=== PATIENT | female | born 1945 | race Caucasian/White ===

== ENCOUNTER 2019-05-01 07:30 | Inpatient (IN) | payer MEDICARE, MEDICAID ==
[~2019-05-01] VITALS: Ht 157.5 cm; Wt 76.2 kg
[~2019-05-01 07:30] MED LIST: ALEN70TA68 PO; AMLO2.5T45 PO; ASPI-1393 PO; ATOR10TA69 PO; CALCIUM PO; FENO200C PO; GABA-531 PO; LISI10TA5 PO; METF-414 PO; MONT10TA21 PO; PRAV10TA35 PO; levaquin PO
[2019-05-01] MEDS ORDERED: ALBUTEROL (0.083%) 2.5MG/3ML NEB HHN STA (08:06)
[2019-05-01] MEDS ORDERED: IPRATROPIUM BROMIDE (0.02%) 0.5MG/2.5ML NEB HHN STA (08:06)
[2019-05-01 08:13] LABS: BASOPHILS % 0.9 % (0.0-2.0); EOSINOPHILS % 1.7 % (0.0-5.0); HEMATOCRIT. 42.4 % (36.0-48.0); HEMOGLOBIN. 14.3 g/dL (12.0-16.0); LYMPHOCYTES % 25.5 % (20.0-50.0); MEAN CORPUSCULAR HEMOGLOBIN 30.1 pg (28.0-32.0); MEAN CORPUSCULAR VOLUME 88.9 fL (81.0-99.0); MEAN PLATELET VOLUME 7.4 fl (7.4-10.4); MONOCYTES % 5.5 % (2.0-8.0); NEUTROPHILS % 66.4 % (40.0-76.0); PLATELET 206 x1000/uL (130-400); RED BLOOD CELL COUNT 4.77 mill/uL (4.2-5.4); RED CELL DISTRIBUTION WIDTH 13.9 % (11.6-14.6)
[2019-05-01 08:20] LABS: CHLORIDE 107 mEq/L (98-107)
[2019-05-01 08:21] LABS: INR 1.1; PROTHROMBIN TIME 11.5 sec (9.6-11.0)
[2019-05-01 08:54] LABS: CLARITY URINE CLEAR (CLEAR); COLOR URINE YELLOW (YELLOW); KETONES URINE NEGATIVE (NEGATIVE); LEUKOCYTE ESTERASE URINE NEGATIVE (NEGATIVE); NITRITE URINE NEGATIVE (NEGATIVE); OCCULT BLOOD URINE TRACE (NEGATIVE); PROTEIN URINE 1+ (NEGATIVE); SPECIFIC GRAVITY URINE 1.014 (1.005-1.030); UROBILINOGEN URINE 0.2 E.U./dL (0.2-1.0)
[2019-05-01] MEDS ORDERED: POTASSIUM CHLORIDE 20MEQ TABLET SR PO ONE (10:00)
[2019-05-01] MEDS ORDERED: FUROSEMIDE 20MG/2ML VIAL IVP ONE (10:00)
[2019-05-01] MEDS ORDERED: ONDANSETRON HCL 4MG/2ML INJ IV PRN (11:00)
[2019-05-01] MEDS ORDERED: CLONIDINE 0.1MG TABLET PO PRN (11:00)
[2019-05-01] MEDS ORDERED: ACETAMINOPHEN 325MG TABLET PO PRN (11:00)
[2019-05-01 11:16] VITALS: BP 142/63
[2019-05-01 12:38] VITALS: BP 142/63
[2019-05-01] MEDS ORDERED: POTASSIUM CHLORIDE 20MEQ TABLET SR PO SCH ×2 (13:00→17:00)
[2019-05-01] MEDS: PANTOPRAZOLE 40MG DR TABLET PO SCH (15:19)
[2019-05-01 16:10] VITALS: BP 130/65
[2019-05-01] MEDS ORDERED: DEXTROSE 50% WATER 50ML SYRINGE IV PRN (16:15)
[2019-05-01] MEDS: INSULIN LISPRO 100 UNITS/ML SUBCUT SCH ×2 (17:50→20:26)
[2019-05-01] MEDS: BLOOD SUGAR DIAGNOSTIC STRIP TEST SCH ×2 (17:52→20:26)
[2019-05-01] MEDS: FUROSEMIDE 40MG/4ML VIAL IVP SCH (18:14)
[2019-05-01] MEDS ORDERED: NAPR-677 MT (18:53)
[2019-05-01] MEDS ORDERED: CARB-32 PO (18:53)
[2019-05-01] MEDS ORDERED: NAPR-681 MT (18:53)
[2019-05-01] MEDS ORDERED: PROM473S4 MT (18:54)
[2019-05-01] MEDS ORDERED: LOSA50TA41 MT (19:00)
[2019-05-01 20:00] VITALS: BP 139/63
[2019-05-01] MEDS: CARVEDILOL 6.25 MG TABLET PO SCH (20:40)
[2019-05-01 21:16] LABS: T4 FREE 1.02 ng/dL (0.76-1.46)
[2019-05-02] VITALS (7 sets, daily range): BP systolic 98–130; BP diastolic 51–83
[2019-05-02 06:20] LABS: BASOPHILS % 0.7 % (0.0-2.0); HEMATOCRIT. 41.9 % (36.0-48.0); HEMOGLOBIN. 14.2 g/dL (12.0-16.0); LYMPHOCYTES % 23.6 % (20.0-50.0); MEAN CORPUSCULAR HEMOGLOBIN 30.1 pg (28.0-32.0); MEAN CORPUSCULAR VOLUME 88.5 fL (81.0-99.0); MEAN PLATELET VOLUME 8.1 fl (7.4-10.4); MONOCYTES % 8.1 % (2.0-8.0); NEUTROPHILS % 65.6 % (40.0-76.0); PLATELET 219 x1000/uL (130-400); RED BLOOD CELL COUNT 4.74 mill/uL (4.2-5.4); RED CELL DISTRIBUTION WIDTH 14.1 % (11.6-14.6)
[2019-05-02] MEDS: PANTOPRAZOLE 40MG DR TABLET PO SCH (06:32)
[2019-05-02] MEDS: BLOOD SUGAR DIAGNOSTIC STRIP TEST SCH ×4 (06:32→20:44)
[2019-05-02] MEDS: FUROSEMIDE 40MG/4ML VIAL IVP SCH ×2 (06:32→17:13)
[2019-05-02 06:33] LABS: CHLORIDE 108 mEq/L (98-107)
[2019-05-02] MEDS: INSULIN LISPRO 100 UNITS/ML SUBCUT SCH ×4 (07:50→20:44)
[2019-05-02] MEDS ORDERED: POTASSIUM CHLORIDE 20MEQ TABLET SR PO SCH (09:00)
[2019-05-02] MEDS: CARVEDILOL 6.25 MG TABLET PO SCH ×2 (09:00→20:44)
[2019-05-02] MEDS ORDERED: MAGNESIUM 2 G PREMIX 50 ML IV NR (10:00)
[2019-05-02] MEDS: LISINOPRIL 2.5MG TABLET PO SCH (13:00)
[2019-05-02] MEDS: CEFTRIAXONE 1 G PREMIX 50 ML IV SCH (21:02)
[2019-05-03] VITALS: BP 107/49
[2019-05-03 04:00] VITALS: BP 96/65
[2019-05-03] MEDS: FUROSEMIDE 40MG/4ML VIAL IVP SCH ×2 (06:23→17:56)
[2019-05-03] MEDS: PANTOPRAZOLE 40MG DR TABLET PO SCH (06:24)
[2019-05-03] MEDS: BLOOD SUGAR DIAGNOSTIC STRIP TEST SCH ×4 (06:24→21:21)
[2019-05-03 06:27] LABS: BASOPHILS % 0.9 % (0.0-2.0); EOSINOPHILS % 3.5 % (0.0-5.0); HEMATOCRIT. 41.6 % (36.0-48.0); HEMOGLOBIN. 13.9 g/dL (12.0-16.0); LYMPHOCYTES % 28.5 % (20.0-50.0); MEAN CORPUSCULAR HEMOGLOBIN 29.7 pg (28.0-32.0); MEAN CORPUSCULAR VOLUME 89.2 fL (81.0-99.0); MONOCYTES % 8.6 % (2.0-8.0); NEUTROPHILS % 58.5 % (40.0-76.0); PLATELET 217 x1000/uL (130-400); RED BLOOD CELL COUNT 4.67 mill/uL (4.2-5.4); RED CELL DISTRIBUTION WIDTH 13.6 % (11.6-14.6)
[2019-05-03 07:02] LABS: CHLORIDE 102 mEq/L (98-107)
[2019-05-03] MEDS: INSULIN LISPRO 100 UNITS/ML SUBCUT SCH ×4 (07:47→21:00)
[2019-05-03 08:00] VITALS: BP_SYST 106; BP_SYST 114; BP_DIAS 55; BP_DIAS 64
[2019-05-03] MEDS: LISINOPRIL 2.5MG TABLET PO SCH (09:29)
[2019-05-03] MEDS: CARVEDILOL 6.25 MG TABLET PO SCH ×2 (09:30→21:00)
[2019-05-03 12:00] VITALS: BP 108/53
[2019-05-03 13:31] LABS: BG BASE EXCESS 2.7 mmol/L (-2.0-2.0); BG CARBOXYHEMOGLOBIN 0.7 % (0.5-1.5); BG DEOXYHEMOGLOBIN 10.5 % (0.0-5.0); BG FRACTION INSPIRED OXYGEN 21; BG HCO3 ACT 26.7 mmol/L (22.0-26.0); BG METHEMOGLOBIN 0.2 % (0.0-1.5); BG OXYGEN SATURATION 89.4 % (92.0-98.5); BG OXYHEMOGLOBIN 88.6 % (94.0-97.0); BG PCO2 39.1 mmHg (35.0-45.0); BG PH 7.452 (7.350-7.450); BG PO2 56.7 mmHg (75.0-100.0); BG SAMPLE SITE RIGHT BRACHIAL; BG TOTAL HEMOGLOBIN 14.5 g/dL (12.0-18.0); BG VENT MODE ROOM AIR
[2019-05-03 16:00] VITALS: BP 106/49
[2019-05-03 20:00] VITALS: BP 98/45
[2019-05-03] MEDS: CEFTRIAXONE 1 G PREMIX 50 ML IV SCH (21:35)
[2019-05-04] VITALS: BP 103/60
[2019-05-04 04:00] VITALS: BP 111/58
[2019-05-04 06:58] LABS: CHLORIDE 102 mEq/L (98-107)
[2019-05-04 07:04] LABS: BASOPHILS % 0.6 % (0.0-2.0); EOSINOPHILS % 3.4 % (0.0-5.0); HEMATOCRIT. 40.5 % (36.0-48.0); HEMOGLOBIN. 13.9 g/dL (12.0-16.0); LYMPHOCYTES % 31.7 % (20.0-50.0); MEAN CORPUSCULAR HEMOGLOBIN 30.5 pg (28.0-32.0); MEAN CORPUSCULAR VOLUME 88.9 fL (81.0-99.0); MEAN PLATELET VOLUME 8.2 fl (7.4-10.4); MONOCYTES % 8.8 % (2.0-8.0); NEUTROPHILS % 55.5 % (40.0-76.0); PLATELET 211 x1000/uL (130-400); RED BLOOD CELL COUNT 4.55 mill/uL (4.2-5.4); RED CELL DISTRIBUTION WIDTH 13.7 % (11.6-14.6)
[2019-05-04] MEDS: BLOOD SUGAR DIAGNOSTIC STRIP TEST SCH ×2 (07:39→11:31)
[2019-05-04] MEDS: INSULIN LISPRO 100 UNITS/ML SUBCUT SCH ×2 (07:39→11:31)
[2019-05-04 08:00] VITALS: BP 111/55
[2019-05-04] MEDS: PANTOPRAZOLE 40MG DR TABLET PO SCH (08:11)
[2019-05-04] MEDS: FUROSEMIDE 40MG/4ML VIAL IVP SCH (08:11)
[2019-05-04] MEDS: LISINOPRIL 2.5MG TABLET PO SCH (09:06)
[2019-05-04] MEDS: CARVEDILOL 6.25 MG TABLET PO SCH (09:06)
[2019-05-04 12:00] VITALS: BP 121/54
[2019-05-04] MEDS ORDERED: FURO-151 MT (12:01)
[2019-05-04] MEDS ORDERED: LISI2.5T47 PO (12:01)
[2019-05-04] MEDS ORDERED: COR6 PO (12:01)
[2019-05-04 15:05] VITALS: BP 101/54
== END 2019-05-04 17:08 | disposition home health service (06) | DRG 190 ==
LOC: ER 07:40 → 6WST 09:54 → EDBEDREQ 09:58 → ENRESERV 10:19
PROVIDERS: ADMIT Internal Medicine; ATTEND Internal Medicine
DX: J44.1 Chronic obstructive pulmonary disease with (acute) exacerbation (principal); I50.41 Acute combined systolic (congestive) and diastolic (congestive) heart failure; E87.2 Acidosis; I31.3 Pericardial effusion (noninflammatory); I42.9 Cardiomyopathy, unspecified; I11.0 Hypertensive heart disease with heart failure; E11.9 Type 2 diabetes mellitus without complications; E66.9 Obesity, unspecified; E78.00 Pure hypercholesterolemia, unspecified; I08.1 Rheumatic disorders of both mitral and tricuspid valves; E78.5 Hyperlipidemia, unspecified; E87.6 Hypokalemia; I27.20 Pulmonary hypertension, unspecified; Z87.891 Personal history of nicotine dependence; Z90.89 Acquired absence of other organs; Z98.49 Cataract extraction status, unspecified eye; Z79.899 Other long term (current) drug therapy; Z79.84 Long term (current) use of oral hypoglycemic drugs; Z79.82 Long term (current) use of aspirin; Z68.30 Body mass index [BMI] 30.0-30.9, adult
CPT/HCPCS: 36415; 36600; 71045; 80048; 80061; 81003; 82375; 82550; 82805; 82962; 83036; 83605; 83735; 83880; 84145; 84439; 84443; 84484; 93005; 93306; 93970; 94618; 94640; 96374; 97162; 99285; J0696; J1815; J1940; J3475; J7040; J7611

== ENCOUNTER 2019-10-15 19:10 | Emergency (ER) | payer MEDICARE, MEDICAID ==
[~2019-10-15] VITALS: Ht 165.1 cm; Wt 77.0 kg
[~2019-10-15 19:10] MED LIST changes: -AMLO2.5T45 PO; -ASPI-1393 PO; +ASPI-1497 PO; -ATOR10TA69 PO; -CALCIUM PO; +CARB-32 PO; +COR6 PO; -FENO200C PO; +FURO-151 MT; -LISI10TA5 PO; +LISI2.5T47 PO; -METF-414 PO; -MONT10TA21 PO; +NAPR-677 MT; +NAPR-681 MT; +PROM473S4 MT; -levaquin PO
[2019-10-15 20:27] LABS: BASOPHILS % 1.1 % (0.0-2.0); EOSINOPHILS % 2.2 % (0.0-5.0); HEMOGLOBIN. 13.1 g/dL (12.0-16.0); LYMPHOCYTES % 25.9 % (20.0-50.0); MEAN CORPUSCULAR HEMOGLOBIN 30.8 pg (28.0-32.0); MEAN CORPUSCULAR VOLUME 89.5 fL (81.0-99.0); MONOCYTES % 6.9 % (2.0-8.0); NEUTROPHILS % 63.9 % (40.0-76.0); PLATELET 196 x1000/uL (130-400); RED BLOOD CELL COUNT 4.25 mill/uL (4.2-5.4); RED CELL DISTRIBUTION WIDTH 12.7 % (11.6-14.6)
[2019-10-15 20:31] LABS: CHLORIDE 103 mEq/L (98-107)
[2019-10-15 20:35] LABS: ETHANOL BLOOD < 10 mg/dL
[2019-10-15 21:31] VITALS: BP 140/71
== END 2019-10-15 21:34 | disposition home or self-care (01) ==
LOC: ER 19:10
DX: F12.980 Cannabis use, unspecified with anxiety disorder (principal); I10 Essential (primary) hypertension; E11.9 Type 2 diabetes mellitus without complications; E78.00 Pure hypercholesterolemia, unspecified; Z79.899 Other long term (current) drug therapy; Z79.82 Long term (current) use of aspirin
CPT/HCPCS: 36415; 80053; 80320; 85025; 93005; 99284; G0480

== ENCOUNTER 2020-01-05 17:04 | Emergency (ER) | payer MEDICARE, MEDICAID ==
[~2020-01-05] VITALS: Ht 157.5 cm; Wt 74.0 kg
[2020-01-05] MEDS ORDERED: ACETAMINOPHEN WITH CODEINE 300/30MG TABLET PO ONE (19:15)
[2020-01-05 20:15] VITALS: BP 138/64
== END 2020-01-05 20:16 | disposition home or self-care (01) ==
LOC: ER 17:04
DX: S63.501A Unspecified sprain of right wrist, initial encounter (principal); M19.021 Primary osteoarthritis, right elbow; X58.XXXA Exposure to other specified factors, initial encounter; Y93.89 Activity, other specified; Y92.89 Other specified places as the place of occurrence of the external cause; I10 Essential (primary) hypertension; E11.9 Type 2 diabetes mellitus without complications; E78.00 Pure hypercholesterolemia, unspecified; Z79.899 Other long term (current) drug therapy; Z79.82 Long term (current) use of aspirin
CPT/HCPCS: 29125; 73080; 73110; 93005; 99284

== ENCOUNTER 2020-01-24 21:44 | Emergency (ER) | payer MEDICARE, MEDICAID ==
[~2020-01-24] VITALS: Ht 157.5 cm; Wt 74.0 kg
[2020-01-24 22:36] VITALS: BP 144/63
[2020-01-24] MEDS ORDERED: ACETAMINOPHEN 500MG TABLET PO SCH (23:00)
[2020-01-24 23:25] LABS: CLARITY URINE CLEAR (CLEAR); COLOR URINE YELLOW (YELLOW); KETONES URINE NEGATIVE (NEGATIVE); LEUKOCYTE ESTERASE URINE NEGATIVE (NEGATIVE); NITRITE URINE NEGATIVE (NEGATIVE); OCCULT BLOOD URINE NEGATIVE (NEGATIVE); PROTEIN URINE NEGATIVE (NEGATIVE); SPECIFIC GRAVITY URINE 1.009 (1.005-1.030); UROBILINOGEN URINE 0.2 E.U./dL (0.2-1.0)
== END 2020-01-25 00:51 | disposition home or self-care (01) ==
LOC: ER 21:44
DX: R51 Headache (principal); I11.0 Hypertensive heart disease with heart failure; I50.9 Heart failure, unspecified; E11.9 Type 2 diabetes mellitus without complications; E78.5 Hyperlipidemia, unspecified
CPT/HCPCS: 81003; 99284

== ENCOUNTER 2021-10-16 18:52 | Emergency (ER) | payer MEDICARE, MEDICAID ==
[~2021-10-16] VITALS: Ht 157.5 cm; Wt 80.0 kg
[~2021-10-16 18:52] MED LIST changes: -ALEN70TA68 PO; +ALEN70TA79 PO; -GABA-531 PO; +GABA-532 PO
[2021-10-16 21:23] LABS: BASOPHILS % 1.1 % (0.0-2.0); EOSINOPHILS % 3.4 % (0.0-5.0); HEMATOCRIT. 40.5 % (36.0-48.0); HEMOGLOBIN. 13.9 g/dL (12.0-16.0); LYMPHOCYTES % 29.5 % (20.0-50.0); MEAN CORPUSCULAR VOLUME 87.7 fL (81.0-99.0); MEAN PLATELET VOLUME 7.3 fl (7.4-10.4); MONOCYTES % 8.1 % (2.0-8.0); NEUTROPHILS % 57.9 % (40.0-76.0); PLATELET 202 x1000/uL (130-400); RED BLOOD CELL COUNT 4.62 mill/uL (4.2-5.4); RED CELL DISTRIBUTION WIDTH 12.8 % (11.6-14.6)
[2021-10-16 21:29] LABS: CHLORIDE 104 mEq/L (98-107)
[2021-10-17] MEDS ORDERED: TRAMADOL HCL/ACETAMINOPHEN 37.5/325MG TABLET PO ONE (00:15)
[2021-10-17] MEDS ORDERED: TRAM-529 MT (02:11)
[2021-10-17 02:17] VITALS: BP 155/66
== END 2021-10-17 02:20 | disposition home or self-care (01) ==
LOC: ER 18:52
DX: M54.31 Sciatica, right side (principal)
CPT/HCPCS: 36415; 74176; 80053; 85025; 99284